=== PATIENT | male | born 1945 | race Caucasian/White ===

== ENCOUNTER 2018-01-16 10:22 | Outpatient (CLI) | payer OTHER | END 2018-01-16 10:26 | disposition home or self-care (01) | LOC: SONOGRAMA 10:22 | DX: E04.1 Nontoxic single thyroid nodule (principal) ==

== ENCOUNTER 2021-11-02 12:52 | Outpatient (CLI) | payer OTHER | END 2021-11-02 12:53 | disposition home or self-care (01) | LOC: SONOGRAMA 12:52 | PROVIDERS: ATTEND Pathology Anatomic Pathology & Clinical Pathology | DX: D34 Benign neoplasm of thyroid gland (principal); E04.9 Nontoxic goiter, unspecified ==